=== PATIENT | male | born 1970 | race Hispanic/Latino ===

== ENCOUNTER → 2020-11-22 | Day surgery (SDC) | payer OTHER ==
[2020-11-22 08:00] VITALS: BP 111/75
== END | disposition home or self-care (01) ==
LOC: OR 05:59
PROVIDERS: ATTEND Internal Medicine Gastroenterology
DX: Z12.11 Encounter for screening for malignant neoplasm of colon (principal); K64.8 Other hemorrhoids; E66.9 Obesity, unspecified; Z68.30 Body mass index [BMI] 30.0-30.9, adult
CPT/HCPCS: 45378; 93005; U0002